=== PATIENT | female | born 1980 ===

== ENCOUNTER 2025-03-04 08:07 | Inpatient (IN) | payer OTHER ==
[~2025-03-04] VITALS: Ht 157.5 cm; Wt 59.0 kg
[2025-03-04 08:50] VITALS: BP 105/73
[2025-03-04 09:42] LABS: BASO % 1.0 % (0.1-1.2); EOS # 0.14 (0.04-0.54); EOS % 1.6 % (0.7-7.0); LYMPH # 2.39 (1.18-3.74); LYMPH % 27.3 % (19.3-53.1); MEAN PLATELET VOLUME 9.90 fl (9.4-12.4); MONO # 0.57 (0.24-0.82); MONO % 6.5 % (4.7-12.5); NEUT # 5.53 (1.56-6.13); NEUT % 63.4 % (34.0-71.1); RED CELL DISTRIBUTION WIDTH 13.9 % (11.6-14.4)
[2025-03-04 09:46] LABS: URINE APPEARANCE Clear; URINE BILIRRUBIN Negative (NEGATIVE); URINE BLOOD NHT; URINE COLOR Yellow; URINE GLUCOSE Negative (NEGATIVE); URINE KETONE Negative (NEGATIVE); URINE LEUKOCYTE Negative; URINE NITRATE Negative; URINE PROTEIN Negative (NEGATIVE); URINE UROBILINOGEN 0.2 E.U./dl
[2025-03-04 09:48] LABS: URINE BACTERIA 292.7 uL (0.0-1933); URINE EPITHELIAL CELLS 17.0 uL (0.0-38.8); URINE RBC 17.4 uL (0.0-20.8); URINE WBC 3.6 uL (0.0-23.2)
[2025-03-04 10:10] LABS: URINE CAST 0.14 uL (0.0-1.40)
[2025-03-04 10:12] LABS: INR < 0.93
[2025-03-04 10:35] LABS: ALT/SGPT 20.0 U/L (12-78); AST/SGOT 12.0 U/L (15-37); BILIRUBIN TOTAL 0.46 mg/dL (0.3-1.2); BUN CREA RATIO 12.0 (7.0-25.0); CREATININE SERUM 0.84 mg/dL (0.55-1.02); GFR 74.35; GLOBULINA 3.7 G/DL (2.4-3.5); GLUCOSE FASTING 89.0 mg/dL (65-100); OSMOLALITY SERUM 283.0 MOSM/KG (275-295)
[2025-03-07] MEDS ORDERED: DEXAMETHASONE SODIUM PHOSPHATE 4 MG/ML VIAL ONE (07:03)
[2025-03-07] MEDS ORDERED: ENALAPRILAT DIHYDRATE 1.25 MG/ML VIAL IV PRN (10:00)
[2025-03-07] MEDS ORDERED: ONDANSETRON HCL 2 MG/ML VIAL IV PRN (10:00)
[2025-03-07 11:30] VITALS: BP 107/70; O2SAT 100
[2025-03-07 16:13] VITALS: BP 109/72; O2SAT 99
[2025-03-07] MEDS ORDERED: TRAMADOL HCL 50 MG TABLET PO SCH (17:00)
[2025-03-07] MEDS ORDERED: DIPHENHYDRAMINE HCL 75 MG,LIDOCAINE HCL 30 ML,MAG HYDROX/ALUMINUM HYD/SIMETH 30 ML PO SCH (17:00)
[2025-03-07] MEDS ORDERED: ACETAMINOPHEN 500 MG GEL..CAP PO SCH (17:00)
[2025-03-07] MEDS ORDERED: CYCLOBENZAPRINE HCL 5 MG TABLET PO SCH (17:00)
[2025-03-07] MEDS ORDERED: PANTOPRAZOLE SODIUM 40 MG/VIAL VIAL IV PUSH SCH (21:00)
[2025-03-08 01:15] VITALS: BP 100/58; O2SAT 100
[2025-03-08] MEDS ORDERED: MAG HYDROX/ALUMINUM HYD/SIMETH 30 ML BLIST.PACK PO ONE (07:06)
[2025-03-08 07:30] VITALS: BP 103/65; O2SAT 99
== END 2025-03-08 15:20 | disposition home or self-care (01) | DRG 627 ==
LOC: O/R 03-07 06:00 → SURH 03-07 08:15 → SURG 03-07 10:58
PROVIDERS: ADMIT Surgery; ATTEND Surgery
PROC: 0GTH0ZZ Resection of Right Thyroid Gland Lobe, Open Approach (ICD-10-PCS; principal; 2025-03-07 07:00)
DX: C73 Malignant neoplasm of thyroid gland (principal)

== ENCOUNTER 2025-05-23 05:00 | Day surgery (SDC) | payer OTHER ==
[2025-05-20 07:39] LABS: BASO % 1.1 % (0.1-1.2); EOS # 0.09 (0.04-0.54); EOS % 1.3 % (0.7-7.0); LYMPH # 1.87 (1.18-3.74); LYMPH % 26.9 % (19.3-53.1); MEAN PLATELET VOLUME 9.90 fl (9.4-12.4); MONO # 0.47 (0.24-0.82); MONO % 6.8 % (4.7-12.5); NEUT # 4.44 (1.56-6.13); NEUT % 63.8 % (34.0-71.1); RED CELL DISTRIBUTION WIDTH 13.3 % (11.6-14.4)
[2025-05-20 07:44] LABS: URINE APPEARANCE Clear; URINE BILIRRUBIN Negative (NEGATIVE); URINE BLOOD Moderate; URINE COLOR Yellow; URINE GLUCOSE Negative (NEGATIVE); URINE KETONE Negative (NEGATIVE); URINE LEUKOCYTE Negative; URINE NITRATE Negative; URINE PROTEIN Negative (NEGATIVE); URINE UROBILINOGEN 0.2 E.U./dl
[2025-05-20 07:45] LABS: URINE BACTERIA 171.5 uL (0.0-1933); URINE EPITHELIAL CELLS 20.2 uL (0.0-38.8); URINE RBC 30.8 uL (0.0-20.8); URINE WBC 3.2 uL (0.0-23.2)
[2025-05-20 08:13] LABS: URINE CAST 0.00 uL (0.0-1.40)
[2025-05-20 08:19] VITALS: BP 106/71
[2025-05-20 08:35] LABS: INR < 0.93
[2025-05-20 08:44] LABS: ALT/SGPT 21.0 U/L (12-78); AST/SGOT 12.0 U/L (15-37); BILIRUBIN TOTAL 0.44 mg/dL (0.3-1.2); BUN CREA RATIO 15.0 (7.0-25.0); CREATININE SERUM 0.87 mg/dL (0.55-1.02); GFR 71.4; GLOBULINA 3.6 G/DL (2.4-3.5); GLUCOSE FASTING 96.0 mg/dL (65-100); OSMOLALITY SERUM 285.0 MOSM/KG (275-295)
[~2025-05-23] VITALS: Ht 157.5 cm; Wt 59.0 kg
[2025-05-23] MEDS ORDERED: DEXAMETHASONE SODIUM PHOSPHATE 4 MG/ML VIAL ONE (07:24)
== END 2025-05-23 12:10 | disposition home or self-care (01) ==
LOC: CIR.AMB 05:00 → O/R 05:00 → SURH 05:00 → EDSTATUS 08:45 → SURH 08:45 → CIR.AMB 12:10 → O/R 12:10
PROVIDERS: ATTEND Surgery
DX: C73 Malignant neoplasm of thyroid gland (principal); Z91.041 Radiographic dye allergy status